=== PATIENT | female | born 1965 | race Caucasian/White ===

== ENCOUNTER → 2016-08-04 | Outpatient (CLI) | payer OTHER ==
[~2016-08-04] MED LIST: CETI1TAB14 PO; ESOM40CA24 PO; MULT-806 PO; [UNRECOGNIZED DRUG - OTHER] PO
== END ==
LOC: NEU 13:14
PROVIDERS: ATTEND Psychiatry & Neurology Neurology
DX: G54.0 Brachial plexus disorders (principal)
CPT/HCPCS: 95886; 95910